=== PATIENT | male | born 1985 | race Caucasian/White ===

== ENCOUNTER 2017-06-19 13:50 | Emergency (ER) | payer BC ==
[2017-06-19] MEDS ORDERED: IBUPROFEN 400 MG TABLET PO ONE (15:05)
[2017-06-19] MEDS ORDERED: IBUPROFEN 400 MG TABLET ONE (15:11)
--- NOTE | 2017-06-19 15:12 | ERNOTE ---
Lower Extremity HPI - General Lower Extremities Pain: ankle: right Time Seen by Provider: 06/19/17 14:56 Source: patient Exam Limitations: no limitations - Immun/Allergies/Home Medications Immunizations: IMMUNIZATION HX Immunizations Up to Date Yes History of Influenza Vaccine No Allergies/Adverse Reactions: Allergies Allergy/AdvReac Type Severity Reaction Status Date / Time No Known Allergies Allergy Verified 11/08/14 11:39 Home Medications: HOME MEDICATIONS LORazepam [Ativan] 1 mg PO TID PRN 06/19/17 [Last Taken Unknown] Mirtazapine [Remeron] 30 mg PO HS 06/19/17 [Last Taken Unknown] - History of Present Illness Narrative: Patient was playing soccer and rolled his ankle while playing, denies any other injury, has not been able to bear weight, has not taken any pain meds yet. Date (Duration): 06/19/17 Occurred: just prior to arrival Location of Incident: other Method of Injury: Reports: twisted Loss of Consciousness: Reports: no loss of consciousness Modifying Factors - (Improves): Reports: rest Modifying Factors - (Worsens): Reports: movement Associated Symptoms: Reports: unable to bear weight, snapping, popping sensation. Denies: headache, chest pain Other Injuries: Reports: none Subsequent Symptoms: Denies: sensory loss, numbness Prior Treament: Denies: recently seen, similar symptoms before Review of Systems - Review of Systems Constitutional: Absent: recent illness, fever EYE: Absent: vision changes ENT: Absent: nose congestion, nasal drainage Respiratory: Absent: shortness of breath, cough Cardiology: Absent: chest pain Gastrointestinal/Abdominal: Absent: vomiting, diarrhea, abdominal pain Genitourinary: Absent: frequency Musculoskeletal: Present: See HPI Skin: Absent: rash Neurological: Absent: weakness, numbness - Patient's Past Medical History Patient History - Medical: Other Patient History - Cardiac/Respiratory: No pertinent hx Patient History - Cancer: No Hx of Cancer Patient History - Surgical Procedures: Vasectomy Patient History - Other: None - Social History Abuse History: No History of abuse Psych History: No pertinent hx Smoking Status: Current every day smoker Alcohol Use: occasionally Drug Use: none - Immunizations Immunizations Up to Date: Yes History of Influenza Vaccine: No Physical Exam - Physical Exam General Appearance: Present: wd/wn, alert, no apparent distress Respiratory: Present: no respiratory distress Peripheral Pulses: N=norm/S=strong/W=weak/B=bound/A=absent: Dorsalis-pedis (R): Normal Extremity Exam: Present: normal except -, decreased range of motion - (due to pain?), other - right lateral malleolus swollen, tender to palpation, no deformity, no echymosis Neurological Exam: Present: alert, oriented, normal mood/affect, no motor/ sensory deficits Skin Exam: Present: normal color, warm/dry ED Progress - Vital Signs Patient's Vital Signs:: I have reviewed the patient's vital signs. Vital Signs: Vital Signs 06/19/17 06/19/17 13:55 14:32 Temperature 36.5 C 36.3 C L Pulse Rate 107 H 100 Respiratory 14 18 Rate Blood Pressure 109/64 124/71 O2 Sat by Pulse 98 Oximetry - X-Ray X-Ray #1 X-Ray: ankle - no bony injury Interpretation: Interp. by me - Progress/Reassessment Chief Complaint: Ankle Injury/ Pain Departure Clinical Impression: Right ankle sprain Qualifiers: Encounter type: initial encounter Involved ligament of ankle: unspecified ligament Qualified Code(s): S93.401A - Sprain of unspecified ligament of right ankle, initial encounter - Departure Disposition: Home self-care Condition: Good Instructions: Ankle Sprain, [id number], Form - Excuse from Work, School, or Physical Activity Additional Instructions: take over the counter ibuprofen (200mg) four tablets three times day as needed for pain call the orthopedic office in the morning for follow up Referrals: Alli Shaikh MD [Staff Physician] -
[2017-06-19 15:51] VITALS: BP 113/78
== END 2017-06-19 15:25 | disposition home or self-care (01) ==
LOC: ER 13:50
DX: S93.401A Sprain of unspecified ligament of right ankle, initial encounter (principal); F17.200 Nicotine dependence, unspecified, uncomplicated; Y93.66 Activity, soccer